=== PATIENT | female | born 1965 | race African-American/Black ===

== ENCOUNTER 2019-12-05 22:00 | Emergency (ER) | payer OTHER ==
--- NOTE | 2019-12-05 22:43 | RAD ---
XR Hip Lt 2-3 View INDICATION: Left hip pain COMPARISON: None FINDINGS: Bones: No acute osseous abnormality. Bone mineralization appears within normal limits. Hip joint: Radiographically normal. SI joints and symphysis pubis: Radiographically normal. Intrapelvic contents: There is surgical anastomotic suture line seen within the lower midline pelvis. There are scattered phleboliths. Surrounding soft tissues: Radiographically normal. IMPRESSION: 1. No acute osseous abnormality.
[2019-12-05] MEDS ORDERED: Ibuprofen 200 MG TAB ONE (22:52)
[2019-12-05] MEDS ORDERED: HYDROcodone/Acetaminophen 5/325 mg Tablet ONE (22:52)
== END 2019-12-05 23:57 | disposition home or self-care (01) ==
LOC: ERS 22:00
DX: M54.42 Lumbago with sciatica, left side (principal); M25.552 Pain in left hip; K21.9 Gastro-esophageal reflux disease without esophagitis; E78.00 Pure hypercholesterolemia, unspecified; F32.9 Major depressive disorder, single episode, unspecified; Z79.899 Other long term (current) drug therapy

== ENCOUNTER 2021-03-16 10:59 | Emergency (ER) | payer OTHER ==
[2021-03-16] MEDS ORDERED: Ondansetron PF 4 MG/2 ML Vial ONE (11:26)
[2021-03-16 12:06] LABS: #Eosinphils 0.1 thou/uL (0.0-0.7); #Lymphocytes 1.2 thou/uL (1.20-3.40); #Monocytes 0.5 thou/uL (0.11-0.59); #Neutrophils 3.6 thou/uL (1.40-6.50); %Basophils 0.7 % (0.0-1.0); %Eosinophils 1.9 % (0.0-10.0); %Lymphocytes 22.1 % (21.0-51.0); %Monocytes 8.5 % (0.0-10.0); %Neutrophils 66.8 % (42.0-75.0); Hemoglobin 12.9 g/dL (12.0-16.0); Mean Corpuscular HGB CONC 34.4 g/dL (32.0-36.0); Mean Corpuscular Hemoglobin 32.2 pg (27.0-31.0); Mean Corpuscular Volume 93.7 fL (78.0-98.0); Mean Platelet Volume 7.6 fL (7.4-10.4); Platelet Count 309 thou/uL (130-400); RBC Distribution Width 11.9 % (11.5-14.5); White Blood Cell (WBC) Count 5.4 thou/uL (4.8-10.8)
[2021-03-16 12:27] LABS: ALT (SGPT) 55 U/L (8-55); AST (SGOT) 60 U/L (5-34); Albumin 4.3 g/dL (3.5-5.0); Alkaline Phosphatase 124 U/L (40-110); Anion Gap 18 mmol/L (10-20); BUN (Urea Nitrogen) 7 mg/dL (9.8-20.1); Bilirubin, Total 0.5 mg/dL (0.2-1.2); Calc. Creatinine Clearance 0 mL/min (70-130); Calcium 9.5 mg/dL (7.8-10.44); Carbon Dioxide 21 mmol/L (22-29); Chloride 102 mmol/L (98-107); Globulin 3.7 g/dL (2.4-3.5); Glucose 112 mg/dL (70-105); Sodium 137 mmol/L (136-145)
== END 2021-03-16 13:26 | disposition home or self-care (01) ==
LOC: ERS 10:59
DX: R55 Syncope and collapse (principal); R11.10 Vomiting, unspecified; R19.7 Diarrhea, unspecified; R94.31 Abnormal electrocardiogram [ECG] [EKG]; K21.9 Gastro-esophageal reflux disease without esophagitis; E78.00 Pure hypercholesterolemia, unspecified; I10 Essential (primary) hypertension
CPT/HCPCS: 36415; 71045; 80053; 84484; 85025; 93005; 96374; J2405

== ENCOUNTER 2021-11-13 12:38 | Emergency (ER) | payer OTHER ==
[2021-11-13 13:16] LABS: #Eosinphils 0.2 thou/uL (0.0-0.7); #Lymphocytes 1.6 thou/uL (1.20-3.40); #Monocytes 0.4 thou/uL (0.11-0.59); #Neutrophils 3.7 thou/uL (1.40-6.50); %Basophils 0.3 % (0.0-1.0); %Eosinophils 2.6 % (0.0-10.0); %Lymphocytes 26.9 % (21.0-51.0); %Monocytes 7.5 % (0.0-10.0); %Neutrophils 62.7 % (42.0-75.0); Hemoglobin 12.9 g/dL (12.0-16.0); Mean Corpuscular HGB CONC 33.4 g/dL (32.0-36.0); Mean Corpuscular Hemoglobin 31.7 pg (27.0-31.0); Mean Platelet Volume 6.4 fL (7.4-10.4); Platelet Count 326 thou/uL (130-400); RBC Distribution Width 11.7 % (11.5-14.5); Red Blood Cell (RBC) Count 4.07 mill/uL (4.20-5.40); White Blood Cell (WBC) Count 5.9 thou/uL (4.8-10.8)
[2021-11-13 13:54] LABS: ALT (SGPT) 24 U/L (8-55); AST (SGOT) 26 U/L (5-34); Albumin 4.5 g/dL (3.5-5.0); Alkaline Phosphatase 86 U/L (40-110); Anion Gap 18 mmol/L (10-20); BUN (Urea Nitrogen) 10 mg/dL (9.8-20.1); Bilirubin, Total 0.8 mg/dL (0.2-1.2); Calc. Creatinine Clearance 0 mL/min (70-130); Calcium 9.9 mg/dL (7.8-10.44); Carbon Dioxide 21 mmol/L (22-29); Chloride 105 mmol/L (98-107); Globulin 3.4 g/dL (2.4-3.5); Glucose 96 mg/dL (70-105); Lipase 40 U/L (8-78); Potassium 3.7 mmol/L (3.5-5.1); Protein, Total 7.9 g/dL (6.0-8.3); Sodium 140 mmol/L (136-145)
[2021-11-13] MEDS ORDERED: Multivitamins, Adult 10 ML, Thiamine HCl 100 MG, Folic Acid 1 MG in Dextrose 5 %-0.45 %... IV SCH (15:00)
[2021-11-13 16:03] LABS: Lactic Acid 2.8 mmol/L (0.5-2.2)
== END 2021-11-13 18:11 | disposition home or self-care (01) ==
LOC: ERS 12:38
DX: R11.2 Nausea with vomiting, unspecified (principal); K21.9 Gastro-esophageal reflux disease without esophagitis; E78.00 Pure hypercholesterolemia, unspecified; F17.210 Nicotine dependence, cigarettes, uncomplicated
CPT/HCPCS: 36415; 80053; 83605; 83690; 84484; 85025; 93005; 94760; 96365; 96366; J3411; J7042

== ENCOUNTER 2022-04-22 10:58 | Emergency (ER) | payer OTHER ==
[2022-04-22] MEDS ORDERED: Ibuprofen 800 MG TAB ONE (12:37)
[2022-04-22] MEDS ORDERED: Acetaminophen 500 MG TAB ONE (12:37)
== END 2022-04-22 12:56 | disposition home or self-care (01) ==
LOC: ERS 10:58
DX: S70.02XA Contusion of left hip, initial encounter (principal); S80.12XA Contusion of left lower leg, initial encounter; E78.00 Pure hypercholesterolemia, unspecified; W01.0XXA Fall on same level from slipping, tripping and stumbling without subsequent striking against object, initial encounter
CPT/HCPCS: 72170

== ENCOUNTER 2023-01-10 20:31 | Emergency (ER) | payer OTHER | END 2023-01-10 21:27 | disposition home or self-care (01) | LOC: ERS 20:31 | DX: R53.81 Other malaise (principal); E78.00 Pure hypercholesterolemia, unspecified | CPT/HCPCS: 99283 ==

== ENCOUNTER 2023-09-29 14:58 | Emergency (ER) | payer OTHER ==
[2023-09-29 16:30] LABS: Bacteria/HPF None Seen HPF (None Seen); Bilirubin Negative (Negative); Blood, Urine Negative (Negative); CAUTI Indications for Culture Alt mental st,lethar; Clarity Clear (Clear); Glucose, Urine (Dipstick) Normal (Negative); Ketone, Urine Negative (Negative); Leukocyte Negative Leu/uL (Negative); Nitrite Negative (Negative); Protein, Urine (Dipstick) Negative (Neg-Trace); RBC/HPF None Seen HPF (0-3); Specific Gravity, Urine 1.002 (1.002-1.036); Squamous Epithelial None Seen HPF (0-3); Urobilinogen Normal mg/dL (Less than 2); WBC/HPF 0-3 HPF (0-3); pH, Urine 5.5 (5.0-9.0)
[2023-09-29 16:39] LABS: Urine Culture Reflex No No
== END 2023-09-29 15:50 | disposition home or self-care (01) ==
LOC: ERS 14:58
DX: R42 Dizziness and giddiness (principal)
CPT/HCPCS: 81001; 87086; 93005

== ENCOUNTER 2023-11-02 21:12 | Emergency (ER) | payer OTHER ==
[2023-11-02] MEDS ORDERED: Ibuprofen 200 MG TAB ONE (22:20)
[2023-11-02] MEDS ORDERED: predniSONE 20 MG TAB ONE (22:20)
== END 2023-11-02 23:34 | disposition home or self-care (01) ==
LOC: ERS 21:12
DX: M54.16 Radiculopathy, lumbar region (principal)
CPT/HCPCS: 72100; J7512

== ENCOUNTER 2023-12-11 15:13 | Emergency (ER) | payer OTHER ==
[2023-12-11] MEDS ORDERED: Magnesium 2 GM/50 ML BAG (IN WATER) ONE (15:59)
[2023-12-11] MEDS ORDERED: Thiamine HCl 200 MG/2 ML VIAL ONE (15:59)
[2023-12-11 16:33] LABS: #Basophils 0.04 10x3/uL (0.0-0.2); %Basophils 0.5 % (0.0-1.0); %Eosinophils 1.5 % (0.0-10.0); %Lymphocytes 24.9 % (21.0-51.0); %Monocytes 5.5 % (0.0-10.0); Hematocrit 36.3 % (36.0-47.0); Hemoglobin 11.9 g/dL (12.0-16.0); Mean Corpuscular HGB CONC 32.8 g/dL (32.0-36.0); Mean Corpuscular Hemoglobin 30.1 pg (27.0-31.0); Mean Corpuscular Volume 91.7 fL (78.0-98.0); Mean Platelet Volume 9.2 fL (7.4-10.4); Platelet Count 350 10x3/uL (130-400); RBC Distribution Width 13.8 % (11.5-14.5); Red Blood Cell (RBC) Count 3.96 mill/uL (4.20-5.40)
[2023-12-11 16:45] LABS: Lipase 40 U/L (8-78)
[2023-12-11 16:47] LABS: ALT (SGPT) 18 U/L (8-55); AST (SGOT) 19 U/L (5-34); Acetaminophen Less than 10 mcg/mL (10.0-30.0); Albumin 4.2 g/dL (3.5-5.0); Alcohol 219.4 mg/dL (Less than 10); Alkaline Phosphatase 117 U/L (40-110); Anion Gap 13 mmol/L (10-20); BUN (Urea Nitrogen) 7 mg/dL (9.8-20.1); Bilirubin, Total 0.5 mg/dL (0.2-1.2); CK (CPK) 271 U/L (29-168); Calc. Creatinine Clearance 0 mL/min (70-130); Calcium 9.4 mg/dL (7.8-10.44); Carbon Dioxide 24 mmol/L (22-29); Chloride 103 mmol/L (98-107); Estimated GFR 100; Globulin 3.2 g/dL (2.4-3.5); Glucose 84 mg/dL (70-105); Protein, Total 7.4 g/dL (6.0-8.3); Salicylate Less than 8.0 mg/dL (15.0-30.0); Sodium 136 mmol/L (136-145)
[2023-12-11 16:51] LABS: Troponin I Less than 0.010 ng/mL (< 0.028)
[2023-12-11 17:06] LABS: Amphetamine Not Detected (NotDetected); Barbiturates Screen Not Detected (NotDetected); Benzodiazepine Screen Not Detected (NotDetected); Cocaine Metabolite Screen Detected (NotDetected); Methadone Not Detected (NotDetected); Methamphetamine Not Detected (NotDetected); Opiate Screen Not Detected (NotDetected); Oxycodone Screen Not Detected (NotDetected); Phencyclidine (PCP) Not Detected (NotDetected); THC/Cannabinoid Screen Not Detected (NotDetected); Tricyclic Screen Not Detected (NotDetected)
[2023-12-11 17:15] LABS: Bacteria/HPF None Seen HPF (None Seen); Bilirubin Negative (Negative); Blood, Urine Negative (Negative); CAUTI Indications for Culture Alt mental st,lethar; Clarity Clear (Clear); Glucose, Urine (Dipstick) Normal (Negative); Ketone, Urine Negative (Negative); Leukocyte 25 Leu/uL (Negative); Nitrite Negative (Negative); Protein, Urine (Dipstick) Negative (Neg-Trace); RBC/HPF None Seen HPF (0-3); Specific Gravity, Urine 1.003 (1.002-1.036); Squamous Epithelial 0-3 HPF (0-3); Urobilinogen Normal mg/dL (Less than 2); WBC/HPF 0-3 HPF (0-3)
[2023-12-11 17:30] LABS: Urine Culture Reflex No No
== END 2023-12-11 19:20 | disposition home or self-care (01) ==
LOC: ERS 15:13
DX: F10.129 Alcohol abuse with intoxication, unspecified (principal); F14.10 Cocaine abuse, uncomplicated
CPT/HCPCS: 36415; 80053; 80306; 80307; 81001; 82140; 82550; 83690; 84484; 85025; 93005; 96374; 96375; J3411; J3475